=== PATIENT | male | born 1995 | race Caucasian/White ===

== ENCOUNTER 2017-09-01 12:44 | Emergency (ER) | payer BC ==
[2017-09-01 12:57] VITALS: BP 139/68
[2017-09-01] MEDS ORDERED: Fluorescein Sodium TOPICAL* 1 MG TEST OPHTHALMIC ONE (12:59)
[2017-09-01] MEDS ORDERED: BSS OPTH.SOL* BTL OPHTHALMIC ONE (13:00)
[2017-09-01] MEDS ORDERED: Tetracaine 0.5% OPTH.SOL 4 ML* 1 DROP BTL ONE (13:00)
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
[2017-09-01] MEDS ORDERED: Erythromycin OPTH OINT* APPLIC OINT RIGHT EYE ONE (18:22)
== END 2017-09-01 13:25 | disposition home or self-care (01) ==
LOC: UCEAST 12:44
DX: S05.01XA Injury of conjunctiva and corneal abrasion without foreign body, right eye, initial encounter (principal); W50.0XXA Accidental hit or strike by another person, initial encounter; Y92.9 Unspecified place or not applicable
CPT/HCPCS: 99212; A9270-GY; G0463

== ENCOUNTER 2018-06-11 11:03 | Emergency (ER) | payer BC ==
[2018-06-11 11:24] VITALS: BP 133/90
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
== END 2018-06-11 11:40 | disposition home or self-care (01) ==
LOC: UCEAST 11:03
DX: H10.9 Unspecified conjunctivitis (principal); R03.0 Elevated blood-pressure reading, without diagnosis of hypertension; Z91.010 Allergy to peanuts
CPT/HCPCS: 99212; G0463